=== PATIENT | male | born 1985 | race American Indian/Alaskan Native ===

== ENCOUNTER 2021-01-08 03:26 | Emergency (ER) | payer OTHER ==
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
[2021-01-08 09:05] VITALS: BP 130/78
== END 2021-01-08 09:06 | disposition home or self-care (01) ==
LOC: ED 03:26
DX: S02.31XA Fracture of orbital floor, right side, initial encounter for closed fracture (principal); F17.200 Nicotine dependence, unspecified, uncomplicated; Y04.8XXA Assault by other bodily force, initial encounter; Y93.89 Activity, other specified; Y92.89 Other specified places as the place of occurrence of the external cause; Y99.8 Other external cause status
CPT/HCPCS: 70486; 99283